=== PATIENT | female | born 1960 | race Two or more races ===

== ENCOUNTER 2017-09-10 15:12 | Outpatient (CLI) | payer BC | END 2017-09-10 23:59 | disposition home or self-care (01) | LOC: LAB 15:12 | PROVIDERS: ATTEND Family Medicine | DX: Z12.4 Encounter for screening for malignant neoplasm of cervix (principal); Z11.3 Encounter for screening for infections with a predominantly sexual mode of transmission | CPT/HCPCS: 87491; 87591; 88142 ==